=== PATIENT | male | born 1960 | race Two or more races ===

== ENCOUNTER 2025-02-11 07:22 | Emergency (ER) | payer MEDICAID, OTHER ==
[~2025-02-11] VITALS: Ht 165.1 cm; Wt 62.9 kg
[2025-02-11 08:05] LABS: Hematocrit 46.1 % (41.0-53.0); Hemoglobin 15.8 g/dL (13.5-17.5); Mean Corpuscular Hemoglobin 30.1 pg (28.0-32.0); Mean Corpuscular Volume 87.6 fL (80.0-100.0); Nucleated Red Blood Cells % 0.0 %
[2025-02-11 08:19] LABS: Alanine Aminotransferase 23 U/L (7-40); Albumin 4.7 g/dL (3.2-4.8); Alkaline Phosphatase 89 U/L (46-116); Anion Gap 9 (5-15); BUN/Creatinine Ratio 7.4 (10.0-20.0); Bilirubin, Total 0.8 mg/dL (0.2-1.0); Calcium 9.5 mg/dL (8.7-10.4); Carbon Dioxide 25 mmol/L (20-31); Potassium 4.1 mmol/L (3.5-5.1); Sodium 143 mmol/L (136-145); Total Protein 8.0 g/dL (5.7-8.2)
[2025-02-11 08:22] LABS: Blood Urea Nitrogen 6 mg/dL (9-23); Chloride 109 mmol/L (98-107); Glucose 109 mg/dL (74-106)
[2025-02-11 08:45] VITALS: BP 117/72; PULSE 69; RESP 17; TEMP 98.3; O2SAT 93
--- NOTE | 2025-02-11 08:46 | ED.PDOC ---
General HPI Comments HPI: Axel 64 y.o male presents to the ED for a chief complaint of dysuria associated with urinary retention that started last night. Patient states minimal urinary output with no hematuria noted. He mentions similar episode many years ago but was never medically evaluated given symptoms self resolved the following day. He denies any fever, chills, nausea, vomiting, back or abdominal pain. Initial Vitals BP: 128/85 HR: 82 RR: 18 O2: 97% RA Temp: 97.8 F Past Medical History: Denies Past Surgical History: Denies Social History: Denies ETOH, smoking, and drug use. Allergies: Denies HPI: Poor Historian. REVIEW OF SYSTEMS: CONSTITUTIONAL: Denies acute: fever, diaphoresis, chills, generalized weakness. HEAD: Denies acute: headache, photophobia Eyes: Denies acute: Double vision, vision loss, eye pain, eye discharge. EARS: Denies acute: tinnitus, hearing loss, ear discharge, ear pain, THROAT: Denies acute: sore throat, swelling, difficulty swallowing , pain with swallowing, change in voice. NECK: Denies acute: neck pain, neck swelling, stiff neck. HEART: Denies acute : chest pain, palpitations, LUNGS: Denies acute: SOB, wheezing, cough, hemoptysis ABDOMEN: Denies acute: abdominal pain, Nausea, Vomiting, diarrhea, melena , hematemesis, hematochezia SKIN: Denies acute: rash, redness, lesions, itchiness. EXTREMITIES: Denies acute: calf pain, numbness, tingling, weakness, denies pain in extremity. Denies acute: Low back pain. Neuro: Denies acute: focal neurological deficit, motor or sensory focal neurological deficit, tremors, seizure like activity, confusion, dizziness, change in mental status, loss of bowel or bladder function, cauda equina like symptoms. : Denies acute: hematuria, flank pain, increase in urinary frequency. PSYCH: Denies acute: hallucination, suicidal ideation, homicidal ideation. PHYSICAL EXAM: General: ----no----acute distress, awake and alert. Head: normocephalic, atraumatic. Neck: supple, trachea is midline, no swelling. Throat: Normal phonation. Eyes:, no erythema, no purulent discharge, no proptosis, no icterus. Heart: regular rate, regular rhythm, no significant murmur appreciated. Lungs: no apparent respiratory distress, Able to speak in full sentences. No wheezing, no rhonchi, no crackles. No stridors Clear to auscultation bilaterally. Abdomen: non tender to palpation, non distended, soft, no guarding, no rebound, + bowel sounds. Neuro: Awake, Alert, oriented to name, self, situation, follows commands GCS=15. Speech is normal. Skin: no petechia, no purpura, no cyanosis, non-pale, not jaundice. Lower extremities: --no - Pitting edema no deformity, no focal swelling, no calf TTP. Makes eye contact. moves all four extremities. Face: no apparent facial droop. Ambulating in the ED independently. ED COURSE: DISCLAIMER: This medical document was created using an electronic medical record system with voice recognition software and computerized dictation system. Although this document has been carefully reviewed, there might still be some phonetic and typographical errors. Occasional wrong-word or "sound-alike" substitutions may have occurred due to the inherent limitations of voice recognition software. These areas are purely typographical due to imperfections of the software programs and do not reflect any compromise in the patient's medical care. Please read the chart carefully and recognize, using context, where these substitutions have occurred. Chief Complaint: Urinary Time Seen by MD: 08:35 Reviewed notes: Medications, Allergies Allergies: Coded Allergies: NO KNOWN ALLERGIES (Unverified , 02/11/25) Information Source: Patient Mode of Arrival: Ambulatory Past Medical History PAST MEDICAL HISTORY: Denies Surgical History: Denies all surgeries Family History Family History: Reviewed,noncontributory to illness Social History Smoker: Non-Smoker Alcohol: Denies ETOH Use Drugs: Denies Drug Use Lives In: Home Was a procedure done? Was a procedure done?: No Differential Diagnosis Kidney stone (Female): N/A Urinary Problem (Male): Bladder Outlet, Bladder Obstruction, Epididymitis, Prostatitis, Plelonephritis, Post op Complications, Renal Failure, Urethritis, Urinary Retention, Urolithiasis, UTI, Other (MALE URINARY PROBLEMSDDX BPH, OBSTRUCTING NEOPLASM, BLADDER PATHOLOGY, OBSTRUCTION STONE. PHYMOSIS/PAPRPHYMOSIS, CAUDA EQUINA SYNDROME, UTI.) X-Ray, Labs, Meds, VS Vital Signs Date Time Temp Pulse Resp B/P (MAP) Pulse Ox O2 Delivery O2 Flow Rate FiO2 02/11/25 08:45 98.3 69 17 117/72 (87) 93 98.3 02/11/25 07:23 97.8 82 18 128/85 97 97.8 Lab Test 02/11/25 08:41 02/11/25 07:50 Range/Units Urine Color Dark-yellow Yellow Urine Clarity Clear Clear Urine pH 5.5 5.0-9.0 Urine Specific [place] 1.006 1.001-1.035 Urine Protein Negative Negative Urine Ketones Negative Negative Urine Blood Negative Negative /uL Urine Nitrite Negative Negative Urine Bilirubin Negative Negative Urine Urobilinogen Normal Negative mg/dL Urine Leukocyte Esterase Negative Negative /uL Urine RBC None seen 0 - 3 /hpf Urine Microscopic WBC 2 0-3 /HPF Urine Squamous Epithelial Cells None seen <5 /hpf Urine Bacteria None seen None Seen /hpf Urine Glucose Normal Normal mg/dL White Blood Count 10.6 4.4-10.8 10^3/uL Red Blood Count 5.26 4.5-5.90 10^6/uL Hemoglobin 15.8 13.5-17.5 g/dL Hematocrit 46.1 41.0-53.0 % Mean Corpuscular Volume 87.6 80.0-100.0 fL Mean Corpuscular Hemoglobin 30.1 28.0-32.0 pg Mean Corpuscular Hemoglobin Concent 34.3 32.0-36.0 g/dL Red Cell Distribution Width 13.6 11.8-14.3 % Platelet Count 278 140-450 10^3/uL Mean Platelet Volume 8.0 6.9-10.8 fL Neutrophils (%) (Auto) 74.1 37.0-80.0 % Lymphocytes (%) (Auto) 18.5 10.0-50.0 % Monocytes (%) (Auto) 6.5 0.0-12.0 % Eosinophils (%) (Auto) 0.5 0.0-7.0 % Basophils (%) (Auto) 0.4 0.0-2.0 % Neutrophils # (Auto) 7.9 1.6-8.6 10 ^3/uL Lymphocytes # (Auto) 2.0 0.4-5.4 10 ^3/uL Monocytes # (Auto) 0.7 0-1.3 10 ^3/uL Eosinophils # (Auto) 0 0-0.8 10 ^3/uL Basophils # (Auto) 0 0-0.2 10 ^3/uL Nucleated Red Blood Cells 0.0 % Sodium Level 143 136-145 mmol/L Potassium Level 4.1 3.5-5.1 mmol/L Chloride Level 109 H 98-107 mmol/L Carbon Dioxide Level 25 20-31 mmol/L Anion Gap 9 5-15 Blood Urea Nitrogen 6 L 9-23 mg/dL Creatinine 0.81 0.700-1.30 mg/dL Glomerular Filtration Rate Calc 99 >90 mL/min BUN/Creatinine Ratio 7.4 L 10.0-20.0 Serum Glucose 109 H 74-106 mg/dL Lactic Acid Level 1.0 0.4-2.0 mmol/L Calcium Level 9.5 8.7-10.4 mg/dL Total Bilirubin 0.8 0.2-1.0 mg/dL Aspartate Amino Transferase (AST) 21 13-40 U/L Alanine Aminotransferase (ALT) 23 7-40 U/L Alkaline Phosphatase 89 46-116 U/L Total Protein 8.0 5.7-8.2 g/dL Albumin 4.7 3.2-4.8 g/dL [place] [address] Ph: [phone] DIAGNOSTIC IMAGING Diagnostic Imaging Report : [id number] Signed PATIENT: MICHAEL CASIANO ACCT: [id number] UNIT: [id number] : 1960 LOC: ER ROOM / BED: / AGE / SEX: 64 / M ADM STATUS: REG ER SERVICE 0838 ORDERING PHYSICIAN: MEHRDAD HAWKINS DO PROCEDURE(s): ABPL - CT AB PEL WO CON-NO ORAL OR IV REASON: difficulty urinating ORDER NUMBER(s): [id number], ACCESSION NUMBER(s): [id number] Exam: CT CT AB PEL WO CON-NO ORAL OR IV History: Difficulty urinating Comparison Study: None Technique: Multidetector spiral CT of the abdomen and pelvis was performed from lung bases to pubic symphysis. Imaging was performed without intravenous contrast. Coronal and sagittal multiplanar reformats were obtained from the axial data set by the technologist. Radiation Dose : 1. Abdomen/Pelvis: CTDIvol 5.2 mGy, DLP 254.8 mGy*cm. Findings: Evaluation of vasculature and solid organs is limited due to lack of intravenous contrast use. Lung Bases: There are fibrotic changes in the lung bases. Visualized portions of the heart and pericardium are unremarkable. Liver: The liver is normal in size. No focal lesions. Gallbladder and Biliary Tree: The gallbladder is unremarkable. No intrahepatic or extrahepatic biliary ductal dilatation. Spleen: Unremarkable Pancreas: The pancreas is grossly unremarkable. Adrenal Glands: Unremarkable Kidneys: Kidneys are unremarkable without calculi or hydronephrosis. GI tract: The stomach is grossly normal in appearance. No evidence of small bowel wall thickening or abnormal dilatation to suggest bowel obstruction. The colon is unremarkable. The appendix is visualized and is normal. Peritoneum/mesentery/retroperitoneum. No evidence of free intraperitoneal air. No ascites. No evidence of suspicious lymphadenopathy. Abdominal Wall: Unremarkable. Vasculature: The visualized abdominal aorta is normal in size and caliber. Evaluation of abdominal and pelvic vessels is limited due to lack of intravenous contrast. Urinary Bladder: Grossly unremarkable for degree of distention. Pelvic Organs: Prostate is enlarged with impression on the posterior wall of the urinary bladder. Musculoskeletal: No aggressive focal bony lesions, acute fractures or dislocation. IMPRESSION: 1. Enlarged prostate with impression of the posterior wall of the urinary bladder. 2. Fibrotic changes in the lung bases. ATED BY: JW CHANEY MD DICTATED DATE/TIME: 02/11/25915 SIGNED BY: JW CHANEY MD SIGNED DATE/TIME: 02/11/25915 CC: Time of 1ST Reevaluation: 00:00 Reevaluation 1ST: Unchanged Time of 2ND Reevaluation: 10:34 Reevaluation 2ND: Resolved Patient Education/Counseling: Diagnosis, Treatment Family Education/Counseling: No Family Present Comments Jaimes catheter was placed. MDM: patient presented with the above HPI.---acute urinary retention---workup was initiated. patient was found with the above mentioned diagnosis. the following medications were ordered: please refer to order lists of meds and tests obtained by myself Dr. Hawkins. Patient ED course and VS have been stabilized. Patient has been reassessed in the ED and remained in a stable condition. Pertinent incidental findings were discussed with the patient and/or family. Patient/family voices understanding and is agreeable with plan. Patient has been observed in the ED adequate length of time to insure improvement/stability. Escalation of care considered: Consideration of escalation to observation or admission Patient was DISCHARGED home in a stable condition. All the reports of any imaging studies that were ordered by myself were reviewed by myself. Departure 1 Departure Time of Disposition: 09:22 Impression: Primary Impression: Acute urinary retention Additional Impression: Enlarged prostate Disposition: HOME / SELF CARE / HOMELESS Condition: Stable Additional Instructions: Additional instructions: Please read all instructions provided in this packet carefully. You MUST follow-up with your primary care/family doctor in 1 to 2 days. If you are unable to see your primary care/family doctor, please return to our emergency room for re-assessment and re-evaluation in 1 to 2 days. Return to the emergency room here in our facility or to the nearest ER [facility] if your symptoms change or worsen. CONSULTATIONS: you MUST Follow-up for consultation as soon as possible with: -urology in 1-2 days. Please call for appointment. You MUST call the consultants office yourself to make an appointment. You may need to arrange that through your insurance and/or your primary/family doctor. If you are unable to see the integrity consultant in 1 to 2 days, you must return to our emergency room (or any other ER of your choice) for re-assessment and re-jann luation. Adequate fluid hydration. Although you have been discharged from the Emergency Department, this does not mean that you have a "clean bill of health". No definitive diagnosis for your symptoms has been made today. It is possible that you are in the process of developing a serious illness. This is why you must return to the ED without fail if any new or worsening symptoms develop. Below is a copy of your radiological report for follow up: [address] [address] Ph: [phone] DIAGNOSTIC IMAGING Diagnostic Imaging Report : [id number] Signed PATIENT: MICHAEL CASIANO ACCT: [id number] UNIT: [id number] : 1960 LOC: ER ROOM / BED: / AGE / SEX: 64 / M ADM STATUS: REG ER SERVICE 0838 ORDERING PHYSICIAN: MEHRDAD HAWKINS DO PROCEDURE(s): ABPL - CT AB PEL WO CON-NO ORAL OR IV REASON: difficulty urinating ORDER NUMBER(s): [id number], ACCESSION NUMBER(s): [id number] Exam: CT CT AB PEL WO CON-NO ORAL OR IV History: Difficulty urinating Comparison Study: None Technique: Multidetector spiral CT of the abdomen and pelvis was performed from lung bases to pubic symphysis. Imaging was performed without intravenous contrast. Coronal and sagittal multiplanar reformats were obtained from the axial data set by the technologist. Radiation Dose : 1. Abdomen/Pelvis: CTDIvol 5.2 mGy, DLP 254.8 mGy*cm. Findings: Evaluation of vasculature and solid organs is limited due to lack of intravenous contrast use. Lung Bases: There are fibrotic changes in the lung bases. Visualized portions of the heart and pericardium are unremarkable. Liver: The liver is normal in size. No focal lesions. Gallbladder and Biliary Tree: The gallbladder is unremarkable. No intrahepatic or extrahepatic biliary ductal dilatation. Spleen: Unremarkable Pancreas: The pancreas is grossly unremarkable. Adrenal Glands: Unremarkable Kidneys: Kidneys are unremarkable without calculi or hydronephrosis. GI tract: The stomach is grossly normal in appearance. No evidence of small bowel wall thickening or abnormal dilatation to suggest bowel obstruction. The colon is unremarkable. The appendix is visualized and is normal. Peritoneum/mesentery/retroperitoneum. No evidence of free intraperitoneal air. No ascites. No evidence of suspicious lymphadenopathy. Abdominal Wall: Unremarkable. Vasculature: The visualized abdominal aorta is normal in size and caliber. Evaluation of abdominal and pelvic vessels is limited due to lack of intravenous contrast. Urinary Bladder: Grossly unremarkable for degree of distention. Pelvic Organs: Prostate is enlarged with impression on the posterior wall of the urinary bladder. Musculoskeletal: No aggressive focal bony lesions, acute fractures or dislocation. IMPRESSION: 1. Enlarged prostate with impression of the posterior wall of the urinary bladder. 2. Fibrotic changes in the lung bases. ATED BY: JW CHANEY MD DICTATED DATE/TIME: 02/11/25915 SIGNED BY: JW CHANEY MD SIGNED DATE/TIME: 02/11/25915 CC: Discharged With: Self Critical Care Note Critical Care Time?: No I personally scribed for MEHRDAD HAWKINS DO ([email or web address]) on 02/11/25 at 08:46. Electronically submitted by Sadia Wang ([facility]). I personally scribed for MEHRDAD HAWKINS DO ([email or web address]) on 02/11/25 at 08:47. Electronically submitted by Sadia Wang ([facility]). I personally scribed for MEHRDAD HAWKINS DO ([email or web address]) on 02/11/25 at 09:22. Electronically submitted by Sadia Wang ([facility]). I personally scribed for MEHRDAD HAWKINS DO ([email or web address]) on 02/11/25 at 09:22. Electronically submitted by Sadia Wang ([facility]). I personally scribed for MEHRDAD HAWKINS DO ([email or web address]) on 02/11/25 at 10:37. Electronically submitted by Sadia Wang ([facility]). MEHRDAD HAWKINS DO Feb 11, 2025 08:46
--- NOTE | 2025-02-11 09:18 | DVH ---
Exam: CT CT AB PEL WO CON-NO ORAL OR IV History: Difficulty urinating Comparison Study: None Technique: Multidetector spiral CT of the abdomen and pelvis was performed from lung bases to pubic s ymphysis. Imaging was performed without intravenous contrast. Coronal and sagittal multiplanar reform ats were obtained from the axial data set by the technologist. Radiation Dose : 1. Abdomen/Pelvis: CTDIvol 5.2 mGy, DLP 254.8 mGy*cm. Findings: Evaluation of vasculature and solid organs is limited due to lack of intravenous contrast use. Lung Bases: There are fibrotic changes in the lung bases. Visualized portions of the heart and perica rdium are unremarkable. Liver: The liver is normal in size. No focal lesions. Gallbladder and Biliary Tree: The gallbladder is unremarkable. No intrahepatic or extrahepatic biliar y ductal dilatation. Spleen: Unremarkable Pancreas: The pancreas is grossly unremarkable. Adrenal Glands: Unremarkable Kidneys: Kidneys are unremarkable without calculi or hydronephrosis. GI tract: The stomach is grossly normal in appearance. No evidence of small bowel wall thickening or abnormal dilatation to suggest bowel obstruction. The colon is unremarkable. The appendix is visualiz ed and is normal. Peritoneum/mesentery/retroperitoneum. No evidence of free intraperitoneal air. No ascites. No evidenc e of suspicious lymphadenopathy. Abdominal Wall: Unremarkable. Vasculature: The visualized abdominal aorta is normal in size and caliber. Evaluation of abdominal a nd pelvic vessels is limited due to lack of intravenous contrast. Urinary Bladder: Grossly unremarkable for degree of distention. Pelvic Organs: Prostate is enlarged with impression on the posterior wall of the urinary bladder. Musculoskeletal: No aggressive focal bony lesions, acute fractures or dislocation. IMPRESSION: 1. Enlarged prostate with impression of the posterior wall of the urinary bladder. 2. Fibrotic changes in the lung bases.
[2025-02-11 09:40] LABS: Urine Protein, UAD Negative (Negative)
== END 2025-02-11 10:35 | disposition home or self-care (01) ==
LOC: ER 07:25 → EDBD 07:25 → ER 10:35
DX: N40.1 Benign prostatic hyperplasia with lower urinary tract symptoms (principal); Z46.6 Encounter for fitting and adjustment of urinary device
CPT/HCPCS: 36415; 51702; 74176; 80053; 81001; 83605; 85025